=== PATIENT | male | born 1985 | race Caucasian/White ===

== ENCOUNTER 2018-07-24 01:31 | Emergency (ER) | payer BC ==
[2018-07-24 01:39] VITALS: BP 137/60; PULSE 92; RESP 20; TEMP 98.2
--- NOTE | 2018-07-24 02:00 | ED ---
Abdominal Pain HPI - General Chief Complaint: Abdominal Pain Stated Complaint: Abdominal Pain Time Seen by Provider: 07/24/18 01:39 Source: patient, family Mode of arrival: ambulatory Limitations: no limitations - History of Present Illness Initial Comments: 33-year-old male patient presents to the emergency department today for evaluation of swelling and discomfort to the right groin. Patient states that he notices approximate 5 days ago. States that at times the area will bulge out and the bulging multiple decrease. States he has increased working out over the last 3 weeks. States he's been lifting weights, doing sit ups, and running. Patient states earlier today the area was bulging out and would not go away so he presented here for further evaluation. He denies any nausea or vomiting. Denies any fevers or chills. Denies any difficulty with bowel movements. States he did have a large bowel movement today denies any hematochezia or melena. Denies any history of abdominal surgery. Patient denies any recent rash, shortness breath, chest pain, back pain, numbness, tingling, dizziness, weakness, hematuria, dysuria, urinary urgency, urinary frequency, headache, visual changes, or any other complaints. - Related Data Allergies Allergy/AdvReac Type Severity Reaction Status Date / Time tetracycline Allergy Rash/Hives Verified 07/24/18 01:39 Review of Systems ROS Statement: Those systems with pertinent positive or pertinent negative responses have been documented in the HPI. ROS Other: All systems not noted in ROS Statement are negative. Past Medical History Additional Past Medical History / Comment(s): ADHD History of Any Multi-Drug Resistant Organisms: None Reported Past Surgical History: No Surgical Hx Reported Past Psychological History: ADD/ADHD, Depression Smoking Status: Former smoker Past Alcohol Use History: Occasional Past Drug Use History: Marijuana General Exam Limitations: no limitations General appearance: alert, in no apparent distress, other (Social well-developed , well-nourished adult male patient in no acute distress. Vital signs upon presentation are temperature 98.2F, pulse 92, respirations 20, blood pressure 137/60, pulse ox 100% on room air.) Eye exam: Present: normal appearance, PERRL, EOMI. Absent: scleral icterus, conjunctival injection, periorbital swelling Respiratory exam: Present: normal lung sounds bilaterally. Absent: respiratory distress, wheezes, rales, rhonchi, stridor Cardiovascular Exam: Present: regular rate, normal rhythm, normal heart sounds. Absent: systolic murmur, diastolic murmur, rubs, gallop, clicks GI/Abdominal exam: Present: soft, normal bowel sounds, other (No palpable hernia to the right groin. No erythema. There is no abdominal tenderness. No pain at McBurney's point.). Absent: distended, tenderness, guarding, rebound, rigid Neurological exam: Present: alert, oriented X3, CN II-XII intact Psychiatric exam: Present: normal affect, normal mood Skin exam: Present: warm, dry, intact, normal color. Absent: rash Course Vital Signs 07/24/18 01:35 Temperature 98.2 F Pulse Rate 92 Respiratory 20 Rate Blood Pressure 137/60 O2 Sat by Pulse 100 Oximetry Medical Decision Making - Medical Decision Making 33-year-old male patient presents to the emergency department today for evaluation of intermittent bulging and tenderness to the right groin. Physical examination was relatively unremarkable. Abdomen soft and nontender. Vital signs stable. Patient is afebrile. Description of symptoms does sound like a sliding inguinal hernia. We did discuss management of this including massaging the hernia back in place while lying down. He is instructed to follow-up with the general surgeon for further evaluation. Return parameters discussed in detail. He verbalizes understanding and agrees with this plan. Disposition Clinical Impression: Right inguinal hernia Disposition: HOME SELF-CARE Condition: Good Instructions (If sedation given, give patient instructions): Inguinal Hernia ( ED) Additional Instructions: If hernia represents, lie down, gently massage the area to get it to reduce. If you are unable to reduce the hernia on your own return to the emergency department immediately. If you develop vomiting, fever, or severe abdominal pain return to the emergency department immediately. Follow-up with surgeon as directed. Return to the emergency department for any other new, worsening, or concerning symptoms. Is patient prescribed a controlled substance at d/c from ED?: No Referrals: Christin Lobo MD [Primary Care Provider] - 1-2 days Nolberto Kee DO [Doctor of Osteopathic Medicine] - 1-2 days Time of Disposition: 02:00
== END 2018-07-24 02:06 | disposition home or self-care (01) ==
LOC: EC 01:31
DX: K40.90 Unilateral inguinal hernia, without obstruction or gangrene, not specified as recurrent (principal); Z87.891 Personal history of nicotine dependence; Z88.1 Allergy status to other antibiotic agents
CPT/HCPCS: 99283